=== PATIENT | female | born 1995 | race Caucasian/White ===

== ENCOUNTER 2017-01-13 14:32 | Observation (INO) | payer BC ==
[2017-01-13] MEDS ORDERED: ADVIL LIQUI-GE200 M2 PO (15:15)
[2017-01-13] MEDS ORDERED: DELTASONE20 MG PO (15:16)
[2017-01-13] MEDS ORDERED: PERCOCET 5-3251 EACH PO (15:17)
[2017-01-13] MEDS ORDERED: ADDERALL 10 MG10 M2 PO (15:18)
[2017-01-13] MEDS ORDERED: VENTOLIN HFA18 G2 PO (15:26)
[2017-01-13 15:43] LABS: BASO % 1.4 % (0-2); BASO ABSOLUTE COUNT 0.1 tho/cmm (0.0-0.2); EOS % 0.1 % (0-7); HCT-HEMATOCRIT 36.4 % (34.0-49.0); HGB-HEMOGLOBIN 12.4 gm/dl (12.0-15.5); IMMATURE GRANULOCYTES ABSOLUTE 0.03 tho/cmm (0-0.03); IMMATURE GRANULOCYTES PERCENT 0.3 % (0-0.3); LYMPH % 39.2 % (20-45); LYMPH ABSOLUTE COUNT 3.5 tho/cmm (0.8-4.5); MCHC MEAN CORPUSCULAR HGB CONC 34.1 % (32.0-36.0); MCV (MEAN CELL VOLUME) 85.2 fl (82.0-96.0); MEAN PLATELET VOLUME 9.3 cmc (9.4-12.4); MONO % 5.6 % (0-12); MONOCYTE ABSOLUTE COUNT 0.5 tho/cmm (0.0-1.2); NEUTROPHIL ABSOLUTE COUNT 4.7 tho/cmm (1.6-8.0); NEUTROPHIL-AUTOMATED 4.7 tho/cmm (1.6-8.0); NEUTROPHILS % 53.4 % (40-80); PLATELET COUNT 157 tho/cmm (150-450); RED BLOOD COUNT 4.27 mil/cmm (4.00-5.20); WHITE BLOOD COUNT 8.9 tho/cmm (4.0-10.0)
[2017-01-13 15:56] LABS: ANION GAP 11 mmol/L (0-20); BLOOD UREA NITROGEN 12 mg/dl (6-24); CARBON DIOXIDE-VENOUS 29 mmol/L (22-32); CHLORIDE 104 mmol/l (96-110); GLUCOSE 97 mg/dL (70-110); POTASSIUM 4.4 mmol/L (3.7-5.1); SODIUM 140 mmol/L (135-145); eGFR VALUE FOR BLACK >90 mL/Min
== END 2017-01-14 16:05 ==
LOC: 5EC 14:32
PROVIDERS: ADMIT Pediatrics
DX: B27.00 Gammaherpesviral mononucleosis without complication (principal); J03.80 Acute tonsillitis due to other specified organisms; E86.0 Dehydration; Z79.52 Long term (current) use of systemic steroids; B97.89 Other viral agents as the cause of diseases classified elsewhere
CPT/HCPCS: G0378; G0379; J1100; J3480; J7030